=== PATIENT | male | born 1965 | race Caucasian/White ===

== ENCOUNTER 2024-11-05 19:47 | Inpatient (IN) | payer MEDICAID ==
[2024-11-05 20:19] LABS: BASOPHILS PERCENT AUTO 0.3 % (0.1-1.3); EOSINOPHILS ABSOLUTE AUTO 0.47 K/uL (0.00-0.40); EOSINOPHILS PERCENT AUTO 6.2 % (0.0-5.4); HEMOGLOBIN 12.5 g/dL (12.9-16.9); IMMATURE GRAN ABSOLUTE AUTO 0.04 K/uL (0.00-0.23); IMMATURE GRAN PERCENT AUTO 0.5 % (0.0-0.7); LYMPHOCYTES ABSOLUTE AUTO 0.66 K/uL (0.8-3.3); LYMPHOCYTES PERCENT AUTO 8.7 % (11.4-47.7); MEAN CORPUSCULAR HEMOGLOBIN 31.5 pg (31.6-35.5); MEAN CORPUSCULAR HGB CONC 32.9 g/dL (31.6-35.5); MEAN CORPUSCULAR VOLUME 95.7 fL (81.4-99.0); MONOCYTES ABSOLUTE AUTO 1.03 K/uL (0.20-0.90); MONOCYTES PERCENT AUTO 13.6 % (3.3-12.6); NEUTROPHILS ABSOLUTE AUTO 5.38 K/uL (1.0-7.6); NEUTROPHILS PERCENT AUTO 70.7 % (40.0-78.1); PLATELET COUNT,PLT 197 K/uL (130-375); RED BLOOD CELL COUNT 3.97 M/uL (4.14-5.76); WHITE BLOOD CELL COUNT,WBC 7.6 K/uL (3.2-11.0)
[2024-11-05 20:23] LABS: BASOPHILS ABSOLUTE AUTO 0.02 K/uL (0.00-0.10)
[2024-11-05 20:43] LABS: A/G RATIO 0.7 (1.2-2.2); ALANINE AMINOTRANSFERASE,ALT 25 U/L (12-78); ALBUMIN 3.4 g/dL (3.4-5.0); ALKALINE PHOSPHATASE 75 U/L (46-116); ASPARTATE AMNIOTRANSFERASE,AST 16 U/L (15-37); BILIRUBIN TOTAL 0.5 mg/dL (0.2-1.0); CARBON DIOXIDE,CO2 28 mmol/L (21-32); CHLORIDE,CL 99 mmol/L (100-108); GLUCOSE RANDOM 116 mg/dL (74-106); POTASSIUM,K 3.6 mmol/L (3.6-5.2); SODIUM,NA 139 mmol/L (140-148)
[2024-11-05 20:45] LABS: APPEARANCE,URINE CLEAR (CLEAR); BILIRUBIN,URINE NEGATIVE (NEGATIVE); COLOR,URINE YELLOW (YELLOW); GLUCOSE,URINE NEGATIVE (NEGATIVE); KETONES,URINE NEGATIVE (NEGATIVE); LEUKOCYTE ESTERASE,URINE NEGATIVE (NEGATIVE); NITRITE,URINE NEGATIVE (NEGATIVE); OCCULT BLOOD,URINE TRACE-INTACT (NEGATIVE); PROTEIN,URINE NEGATIVE (NEGATIVE); UROBILINOGEN,URINE 0.2 EU/dL (0.2-1.0)
[2024-11-05 20:50] LABS: BLOOD UREA NITROGEN,BUN 10 mg/dL (7-18); CALCIUM 9.1 mg/dL (8.5-10.1); CREATININE 0.9 mg/dL (0.8-1.3); EST CRCL DRUG DOSING (CG) 79.75 mL/min; ESTIMATED GFR 98 mL/min (>60)
[2024-11-05 20:52] LABS: ANION GAP 15.6 mmol/L (5.0-14.0)
[2024-11-05 20:52] LABS: BACTERIA,URINE RARE; EPITHELIAL CELLS,URINE RARE; MUCUS,URINE RARE; RBC,URINE 0-5 (0-5); WBC,URINE 0-5 (0-5)
[2024-11-05 20:53] LABS: AMORPHOUS SEDIMENT,URINE NOT SEEN
[2024-11-05] MEDS: Albuterol 0.083% 2.5 MG/3 ML Neb Soln NEB ONE (21:00)
[2024-11-05 21:21] LABS: CORONAVIRUS COVID-19 NAA NEGATIVE (NEGATIVE); INFLUENZA A NAA NEGATIVE (NEGATIVE); INFLUENZA B NAA NEGATIVE (NEGATIVE); RESPIRATORY SYNCYTIAL VIR NAA NEGATIVE (NEGATIVE)
[2024-11-05] MEDS: cefTRIAXone 2 GM in Sodium Chloride 0.9% 50 ML IV ONE (21:49)
[2024-11-05] MEDS ORDERED: Melatonin 3 MG Tab PO PRN (23:01)
[2024-11-05] MEDS ORDERED: Acetaminophen 325 MG Tab PO PRN (23:01)
[2024-11-05] MEDS ORDERED: Sennosides/Docusate Sodium 50-8.6 MG Tab PO PRN (23:01)
[2024-11-05] MEDS ORDERED: Magnesium Hydroxide 400 MG/5 ML Susp 30 ML Cup PO PRN (23:01)
[2024-11-05] MEDS ORDERED: Albuterol 0.083% 2.5 MG/3 ML Neb Soln NEB PRN (23:01)
[2024-11-05] MEDS ORDERED: Ondansetron 4 MG Tab.DIS PO PRN (23:01)
[2024-11-05] MEDS ORDERED: Ondansetron 4 MG/2 ML SDV IV PRN (23:01)
[2024-11-05] MEDS: Enoxaparin 40 MG/0.4 ML Syringe SUBCUT SCH (23:49)
[2024-11-06 05:36] LABS: HEMATOCRIT 36.3 % (38.4-49.7); HEMOGLOBIN 11.8 g/dL (12.9-16.9); MEAN CORPUSCULAR HEMOGLOBIN 31.1 pg (31.6-35.5); MEAN CORPUSCULAR HGB CONC 32.5 g/dL (31.6-35.5); MEAN CORPUSCULAR VOLUME 95.8 fL (81.4-99.0); RED BLOOD CELL COUNT 3.79 M/uL (4.14-5.76); WHITE BLOOD CELL COUNT,WBC 7.4 K/uL (3.2-11.0)
[2024-11-06 05:55] LABS: CALCIUM 8.8 mg/dL (8.5-10.1); EST CRCL DRUG DOSING (CG) 71.78 mL/min; POTASSIUM,K 4.6 mmol/L (3.6-5.2)
[2024-11-06 05:57] LABS: ANION GAP 9.6 mmol/L (5.0-14.0)
[2024-11-06] MEDS: Lactobacillus Rhamnosus GG (Probiotic) Cap PO SCH (08:05)
[2024-11-06] MEDS: Furosemide 40 MG/4 ML VIAL IVPUSH ONE (12:57)
[2024-11-06] MEDS: ceFAZolin 1 GM in Premix Bag 1 BAG IV SCH (21:59)
[2024-11-06] MEDS ORDERED: ceFAZolin 1 GM in Sodium Chloride 0.9% 50 ML IV SCH (22:00)
[2024-11-06] MEDS ORDERED: ceFAZolin 1 GM in Premix Bag 1 BAG IV SCH (22:00)
[2024-11-06] MEDS ORDERED: cefTRIAXone 2 GM in Sodium Chloride 0.9% 50 ML IV SCH (22:00)
[2024-11-06] MEDS: Enoxaparin 40 MG/0.4 ML Syringe SUBCUT SCH (22:03)
[2024-11-07 06:02] LABS: CALCIUM 8.7 mg/dL (8.5-10.1); EST CRCL DRUG DOSING (CG) 71.78 mL/min; MAGNESIUM 2.1 mg/dL (1.8-2.4); POTASSIUM,K 3.9 mmol/L (3.6-5.2)
[2024-11-07] MEDS: Furosemide 40 MG/4 ML VIAL IVPUSH ONE (09:28)
[2024-11-07] MEDS: Furosemide 20 MG/2 ML VIAL IVPUSH SCH (17:29)
[2024-11-08 06:06] LABS: ANION GAP 9.4 mmol/L (5.0-14.0); CALCIUM 8.8 mg/dL (8.5-10.1); CREATININE 1.1 mg/dL (0.8-1.3); EST CRCL DRUG DOSING (CG) 65.25 mL/min; POTASSIUM,K 3.4 mmol/L (3.6-5.2)
[2024-11-08] MEDS: Potassium Chloride 20 MEQ Tab.ER PO ONE ×2 (08:29→17:33)
[2024-11-08] MEDS ORDERED: Sodium Chloride 0.9% 10 ML Syringe IV PRN (10:19)
[2024-11-08] MEDS: Furosemide 40 MG/4 ML VIAL IVPUSH ONE (12:26)
[2024-11-09 06:02] LABS: ANION GAP 11.9 mmol/L (5.0-14.0); CALCIUM 9.1 mg/dL (8.5-10.1); CREATININE 1.2 mg/dL (0.8-1.3); EST CRCL DRUG DOSING (CG) 59.81 mL/min; POTASSIUM,K 3.9 mmol/L (3.6-5.2)
[2024-11-09] MEDS: Potassium Chloride 20 MEQ Tab.ER PO ONE (08:36)
[2024-11-09] MEDS: Furosemide 40 MG/4 ML VIAL IVPUSH ONE (08:37)
== END 2024-11-09 10:38 | disposition home or self-care (01) | DRG 292 ==
LOC: JP.ED 19:47 → JP.MS 22:33 → OBSVTOIN 11-06 14:26
PROVIDERS: ADMIT Registered Nurse; ATTEND Hospitalist
DX: I50.33 Acute on chronic diastolic (congestive) heart failure (principal); Z68.41 Body mass index [BMI] 40.0-44.9, adult; F15.90 Other stimulant use, unspecified, uncomplicated; F10.90 Alcohol use, unspecified, uncomplicated; I87.8 Other specified disorders of veins; I87.2 Venous insufficiency (chronic) (peripheral); Z88.0 Allergy status to penicillin; Z98.890 Other specified postprocedural states; E66.9 Obesity, unspecified
CPT/HCPCS: 0241U; 36415; 71045; 71045-26; 80048; 80053; 81001; 83735; 83880; 85025; 85027; 87040; 87070; 87077; 87205; 93306; 94640; 96365; 99222; 99232; 99238; 99285; 99285-25; A7290-GY; A9270-GY; J0689; J0696; J1650; J1940

== ENCOUNTER 2024-12-29 11:19 | Emergency (ER) | payer MEDICAID ==
[2024-12-29] MEDS: Albuterol/Ipratropium 3.0-0.5 MG/3 ML Neb Soln NEB ONE (13:21)
== END 2024-12-29 14:45 | disposition home or self-care (01) ==
LOC: JP.ED 11:19
DX: J45.20 Mild intermittent asthma, uncomplicated (principal); F17.200 Nicotine dependence, unspecified, uncomplicated; Z88.0 Allergy status to penicillin
CPT/HCPCS: 71046; 94640; 99285; J7620; A9270-GY